=== PATIENT | male | born 1990 | race Caucasian/White ===

== ENCOUNTER 2019-06-03 09:40 | Emergency (ER) | payer SELFPAY ==
[2019-06-03] MEDS ORDERED: NS 0.9% 1000 ML** 2,000 ML IV ONE (09:50)
--- NOTE | 2019-06-03 09:51 | ED ---
Adult Trauma - HPI Summary HPI Summary: This patient is a 29 year old M JIMBOA via EMS to ED with a chief complaint of head trauma since [employer]. Patient fell 20 feet while rock climbing. He lost consciousness. Patient denied wanting to go to a trauma center in the ambulance. Patient arrives at 0940. Dr. Lam at bedside at 0940. Patient reports chills, headache, nausea, abdominal pain, and bilateral knee/ankle pain and abrasions. The patient rates the pain 8/10 in severity. Symptoms aggravated by nothing. Symptoms alleviated by nothing. Patient denies a history of kidney failure. Patient denies head and neck injury. - History of Current Complaint Stated Complaint: FALL PER EMS Hx Obtained From: Patient, EMS Mechanism of Injury: Fall - 20 feet while rock climbing Loss of Consciousness: unsure Onset/Duration: Started Minutes Ago - [employer], Traumatic, Still Present Onset of Pain: Immediate, Post Accident Onset Severity: Severe Current Severity: Moderate Pain Intensity: 8 Pain Scale Used: 0-10 Numeric Location: Head, Extremities - Bilateral knee abrasions Aggravating Factor(s): Nothing Alleviating Factor(s): Nothing Associated Signs & Symptoms: Positive: Nausea/Vomiting, Loss of Consciousness, Other: - Bilateral knee abrasions. Negative: Abdominal Pain - Allergy/Home Medications Allergies/Adverse Reactions: Allergies Allergy/AdvReac Type Severity Reaction Status Date / Time No Known Allergies Allergy Verified 06/03/19 09:54 Home Medications: Home Medications NK [No Home Medications Reported] 06/03/19 [History Confirmed 06/03/19] PMH/Surg Hx/FS Hx/Imm Hx History: Denies: Hx Chronic Renal Failure Sensory History: Denies: Hx Legally Blind, Hx Deafness Opthamlomology History: Denies: Hx Legally Blind EENT History: Denies: Hx Deafness - Surgical History Surgery Procedure, Year, and Place: Meniscus repair - Family History Known Family History: Negative: Cardiac Disease, Hypertension, Diabetes - Social History Alcohol Use: None Hx Substance Use: No Substance Use Type: Reports: None Hx Tobacco Use: No Smoking Status (MU): Never Smoked Tobacco Review of Systems Positive: Chills Positive: Abdominal Pain, Nausea Musculoskeletal: Negative - Neck pain, Other - Bilateral knee and ankle pain Skin: Other - Multiple abrasions to bilateral knees Neurological: Other - Loss of consciousness Positive: Headache All Other Systems Reviewed And Are Negative: Yes Physical Exam - Summary Physical Exam Summary: VITAL SIGNS: Reviewed. GENERAL: Patient is a young, well-developed and nourished male in acute distress secondary to anxiety and left ankle pain. Patient mentated well. HEAD AND FACE: No signs of trauma or hematoma to the scalp. EYES: PERRLA, EOMI x 2, No injected conjunctiva, no nystagmus. EARS: Hearing grossly intact. Ear canals and tympanic membranes are within normal limits. MOUTH: Oropharynx within normal limits. NECK: Supple, trachea is midline, no adenopathy, no JVD, no carotid bruit, no c- spine tenderness, neck with full ROM. CHEST: Symmetric, no tenderness at palpation. LUNGS: Clear to auscultation bilaterally. No wheezing or crackles. CVS: Regular rate and rhythm, S1 and S2 present, no murmurs or gallops appreciated. ABDOMEN: Abrasion to mid-abdomen, lower abdominal tenderness MUSCULOSKELETAL: C-spine is non-tender EXTREMITIES: Bilateral knee abrasions and deformity, left ankle deformity with multiple abrasions, good pulses and capillary refill. NEURO: Alert and oriented x 3. No acute neurological deficits. Speech is normal and follows commands. SKIN: Dry and warm. BEDSIDE US: I performed a FAST exam for the patient and it was negative for blood. GCS: 15 Triage Information Reviewed: Yes Vital Signs On Initial Exam: Initial Vitals Temp Pulse Resp BP Pulse Ox 99.3 F 67 16 147/97 100 06/03/19 10:20 06/03/19 10:20 06/03/19 10:20 06/03/19 10:20 06/03/19 10:20 Vital Signs Reviewed: Yes Procedures - Ultrasound Bedside Ultrasound: normal - FAST exam negative for blood Diagnostics - Laboratory Result Diagrams: 06/03/19 09:46 06/03/19 09:46 Lab Statement: Any lab studies that have been ordered have been reviewed, and results considered in the medical decision making process. - Radiology CXR Radiology Interpretation Completed By: ED Physician Summary of Radiographic Findings: No PTX, pending official radiology report. - CT C-spine CT Interpretation Completed By: Radiologist Summary of CT Findings: DEGENERATIVE DISC DISEASE AND OSTEOARTHRITIS AT C5-C6. NO ACUTE OSSEOUS INJURY TO THE CERVICAL SPINE. Dr. Lam has reviewed this radiology report. Brain CT Interpretation Completed By: Radiologist Summary of CT Findings: NO ACUTE INTRACRANIAL PATHOLOGY. Dr. Lam has reviewed this radiology report. T-spine CT Interpretation Completed By: Radiologist Summary of CT Findings: SCOLIOSIS. DEGENERATIVE DISC DISEASE. NO ACUTE OSSEOUS INJURY TO THE THORACOLUMBAR SPINE. Dr. Lam has reviewed this radiology report. L-spine CT Interpretation Completed By: Radiologist Summary of CT Findings: DEGENERATIVE DISC DISEASE. NO ACUTE OSSEOUS INJURY TO THE THORACOLUMBAR SPINE. Dr. Lam has reviewed this radiology report. CT C/A/P CT Interpretation Completed By: Radiologist Summary of CT Findings: CHEST IMPRESSION: No CT evidence for traumatic thoracic injury. ABDOMEN PELVIS IMPRESSION: No evidence for abdominal pelvic visceral injury, soft tissue plane hematoma, or fracture. Negative exam. Dr. Lam has reviewed this radiology report. Adult Trauma Course/Dx - Course Assessment/Plan: This patient is a 29-year-old male who presents to the emergency room via ambulance with a chief complaint of falling approximately 3 feet onto the floor. He reports that he was climbing and he lost his balance and fell down what is believed by police officers that if its own. As per EMS and the patient he has positive loss of consciousness however he denies any head trauma or neck trauma. He denies any neck pain. He reports positive headache, he has some abdominal pain, and bilateral knees and ankle pain. Rapid FATS exam negative. On arrival to the ED, we obtained 2 IV accesses, Chest x-ray to rule out a pneumothorax. At this point called Trauma center for transfer. Meanwhile while waiting, I order a head CT, C-spine CT, chest, abdomen and pelvis CT as well as T-spine and lumbar spine CT. I discussed the benefits and risks with the patient of CTs with out blood work and he agrees for the CTs. Patient desaturated to 75% while in CT room. . Oxygen was given and O2 sat increased to 100% with 2 L of oxygen. Before obtaining CTs results , I discussed case with Dr. Arcos ED attending at [facility] and he accepted the patient for transfer. We will send all the discs of the CTs and x- rays with the ambulance transport. The patient will be getting IV fluids, when necessary pain medications on oxygen since the patient had a desaturation while he was given the CTs. Before the patient was transferred the patient was given morphine for the pain so from for nausea potassium for hypokalemia and also the patient was given tetanus booster. I also placed a posterior splint of the left ankle. Before and after splint the ankle patient is neurovascular intact. Brain CT impression: No acute intracranial pathology. Cervical Ct Impression: DDD, and osteoarthritis at C5_C6. No acute osseous injury of the cervical spine. Lumbar CT impression: Scoliosis, degenerative disease dizziness. No acute osseous injury of the lumbar spine. CT of the thoracic spine impression: Scoliosis, degenerative disc disease. No acute osseous injury of the thoracolumbar spine. Chest abdomen and pelvis CT impression: as above. - Diagnoses Provider Diagnoses: Trauma, Syncope, Ankle deformity, Knee pain - Physician Notifications Discussed Care Of Patient With: Leandor Arcos Time Discussed With Above Provider: 10:15 Instructed by Provider To: Transfer - Discussed patient case with Dr. Leandro Arcos, ED physician at [place], who accepted the patient for transfer to [place]. - Critical Care Time Critical Care Time: 30-74 min - 30 min Discharge ED - Sign-Out/Discharge Documenting (check all that apply): Patient Departure - Transfer Patient Received Moderate/Deep Sedation with Procedure: No - Discharge Plan Condition: Fair Disposition: TRANS HIGHER LVL OF CARE FAC Referrals: No Primary Care Phys,NOPCP [Primary Care Provider] - - Billing Disposition and Condition Condition: FAIR Disposition: Trans Higher Lvl of Care Fac - Attestation Statements Document Initiated by Bernard: Yes Documenting Scribe: Steven Curiel Provider For Whom Bernard is Documenting (Include Credential): Terry Lam MD Scribe Attestation: I, Steven Curiel, scribed for Terry Lam MD on 06/03/19 at 1046. Scribe Documentation Reviewed: Yes Provider Attestation: The documentation as recorded by the Steven dickson accurately reflects the service I personally performed and the decisions made by me, Terry Lam MD Status of Scribe Document: Viewed
[2019-06-03 10:00] LABS: ABS Basophils 0.1 10^3/ul (0-0.2); ABS Eosinophils 0.1 10^3/ul (0-0.6); ABS Lymphocytes 1.1 10^3/ul (1.0-4.8); ABS Monocytes 0.5 10^3/ul (0-0.8); ABS Neutrophils 9.2 10^3/ul (1.5-7.7); Eosinophil % 0.6 %; Hematocrit 44 % (42-52); Hemoglobin 15.7 g/dL (14.0-18.0); Lymphocyte % 10.2 %; Mean Corpuscular HGB Conc 36 g/dL (31-36); Mean Corpuscular Hemoglobin 30 pg (27-31); Mean Corpuscular Volume 84 fL (80-94); Mean Platelet Volume 7.5 fL (7.4-10.4); Platelet Count 289 10^3/uL (150-450); Red Blood Count 5.28 10^6 /uL (4.18-5.48); Red Cell Distribution Width 14 % (10-15)
[2019-06-03 10:06] LABS: INR 1.12 (0.82-1.09)
[2019-06-03] MEDS ORDERED: Iodixanol* (CONTRAST) 320 MG/ML 100 ML SDV IV ONE (10:12)
[2019-06-03 10:16] LABS: ALT 30 U/L (7-52); AST 53 U/L (13-39); Albumin 4.9 g/dL (3.2-5.2); Albumin/Globulin Ratio 1.6 (1-3); Alkaline Phosphatase 71 U/L (34-104); Anion Gap 11 mmol/L (2-11); BUN/Creatinine Ratio 14.4 (8-20); Blood Urea Nitrogen 14 mg/dL (6-24); CO2 Carbon Dioxide 23 mmol/L (22-32); Calcium 10.1 mg/dL (8.6-10.3); Chloride 104 mmol/L (101-111); EGFR African American 112.3 (>60); EGFR Non-African American 92.8 (>60); Globulin 3.1 g/dL (2-4); Glucose 122 mg/dL (70-100); Potassium 3.1 mmol/L (3.5-5.0); Sodium 138 mmol/L (135-145)
[2019-06-03] MEDS ORDERED: Morphine 4 MG/ML VIAL (1 ml) 4 MG/ML VIAL IV ONE (10:26)
[2019-06-03] MEDS ORDERED: Tetan/Diph/Pertus SYR(Tdap)* 0.5 ML SYR(BOOSTRIX) use SYR IM ONE (10:27)
[2019-06-03] MEDS ORDERED: Potassium Chlor TAB* 20 MEQ TAB.ER PO ONE (10:28)
[2019-06-03] MEDS ORDERED: Ondansetron INJ* 2 MG/ML VIAL IV ONE (10:29)
[2019-06-03 10:41] LABS: Alcohol < 10 mg/dL (<10)
[2019-06-03 10:42] VITALS: BP 144/90
[2019-06-03] MEDS ORDERED: NS 0.9% w/ 20 Meq KCL 1000 ML* 1,000 ML IV SCH (11:00)
== END 2019-06-03 11:06 | disposition short-term general hospital (02) ==
LOC: ED 09:40
DX: S09.90XA Unspecified injury of head, initial encounter (principal); S82.52XA Displaced fracture of medial malleolus of left tibia, initial encounter for closed fracture; S80.212A Abrasion, left knee, initial encounter; S80.211A Abrasion, right knee, initial encounter; W17.89XA Other fall from one level to another, initial encounter; Y93.31 Activity, mountain climbing, rock climbing and wall climbing; Y92.9 Unspecified place or not applicable; Z23 Encounter for immunization; R55 Syncope and collapse; M25.472 Effusion, left ankle; M51.36 Other intervertebral disc degeneration, lumbar region; M51.34 Other intervertebral disc degeneration, thoracic region; M50.322 Other cervical disc degeneration at C5-C6 level; M41.9 Scoliosis, unspecified; M25.572 Pain in left ankle and joints of left foot; M25.571 Pain in right ankle and joints of right foot; R68.83 Chills (without fever); R51 Headache; R11.0 Nausea
CPT/HCPCS: 36415; 70450; 71045; 71260; 72125; 72128; 72131; 74177; 80053; 80320; 83605; 84484; 85025; 85610; 86850; 86900; 86901; 90471; 90715; 96374; 96375; 99285; G0480; J2270; J2405; Q9967